=== PATIENT | female | born 1935 ===

== ENCOUNTER 2022-05-30 04:54 | Emergency (ER) | payer SELFPAY ==
[2022-05-30 05:03] VITALS: BP 166/96
== END 2022-05-30 07:00 | disposition left against medical advice (07) ==
LOC: ED 04:54
DX: R11.0 Nausea (principal); R09.89 Other specified symptoms and signs involving the circulatory and respiratory systems; Z53.21 Procedure and treatment not carried out due to patient leaving prior to being seen by health care provider